=== PATIENT | male | born 1985 | race Hispanic/Latino ===

== ENCOUNTER 2023-04-23 21:04 | Emergency (ER) | payer OTHER ==
[~2023-04-23] VITALS: Ht 177.8 cm; Wt 82.6 kg
[2023-04-23 21:32] VITALS: BP 148/85; PULSE 98; RESP 16
== END 2023-04-23 23:23 | disposition left against medical advice (07) ==
LOC: EDH 21:04
DX: R42 Dizziness and giddiness (principal); Z53.21 Procedure and treatment not carried out due to patient leaving prior to being seen by health care provider
CPT/HCPCS: 99281